=== PATIENT | male | born 1985 | race Caucasian/White ===

== ENCOUNTER 2021-01-15 09:42 | Emergency (ER) | payer SELFPAY ==
--- NOTE | 2021-01-15 11:17 | RAD REPORT ---
EXAM DESCRIPTION: US - Extremity Venous Uni Ltd - 01/15/2021 11:01 am CLINICAL HISTORY: PAIN COMPARISON: None. TECHNIQUE: Real-time sonographic evaluation of the right lower extremity deep venous systems was per formed. FINDINGS: Normal compressibility, flow augmentation, phasic flow and spontaneous flow are identified in the right lower extremity common femoral, superficial femoral, popliteal and posterior tibial vei ns. No intraluminal filling defects seen. A 4.5 x 2.7 x 1.5 centimeter popliteal fossa cyst present. No cyst rupture or hemorrhage findings. IMPRESSION: No DVT in the right lower extremity. A 4.5 centimeter right popliteal fossa cyst is present.
--- NOTE | 2021-01-15 12:44 | RAD REPORT ---
EXAM DESCRIPTION: RAD - Knee Right 3 View - 01/15/2021 12:26 pm CLINICAL HISTORY: PAIN COMPARISON: No comparisons FINDINGS: No acute fracture. No malalignment. Slight medial compartment narrowing. IMPRESSION: No acute osseous abnormality involving the right knee.
--- NOTE | 2021-01-15 13:23 | ER ---
Nurse's Notes [facility] Name: Jhon Keller Age: 35 yrs Sex: Male : 1985 Arrival Date: 01/15/2021 Time: 09:43 Bed 12 Private MD: Diagnosis: Synovial cyst of popliteal space [Turk], right knee;Right peripheral neuropathy Presentation: 01/15 10:04 Chief complaint: Patient states: Right knee pain x 3 weeks, right hand numbness, jl7 intermittent x 3 days. Coronavirus screen: At this time, the client does not indicate any symptoms associated with coronavirus-19. Ebola Screen: No symptoms or risks identified at this time. Initial Sepsis Screen: Does the patient meet any 2 criteria? No. Patient's initial sepsis screen is negative. Does the patient have a suspected source of infection? No. Patient's initial sepsis screen is negative. Risk Assessment: Do you want to hurt yourself or someone else? Patient reports no desire to harm self or others. Onset of symptoms is unknown. Care prior to arrival: None. 10:04 Method Of Arrival: Ambulatory 7 10:04 Acuity: GERMÁN 3 jl7 Triage Assessment: 10:06 General: Appears in no apparent distress. uncomfortable, Behavior is calm, cooperative, jl7 appropriate for age. Pain: Complains of pain in right knee Pain currently is 3 out of 10 on a pain scale. at worst was 10 out of 10 on a pain scale. Historical: - Allergies: 10:06 No Known Allergies; jl7 - Home Meds: 10:06 None [Active]; jl7 - PMHx: 10:06 None; jl7 - PSHx: 10:06 None; jl7 - Immunization history:: Adult Immunizations not up to date, Client reports having NOT received the Covid vaccine. - Social history:: Smoking status: Patient reports the use of cigarette tobacco products, smokes one pack cigarettes per day. Patient uses street drugs, marijuana. Screenin:51 Abuse screen: Denies threats or abuse. Nutritional screening: No deficits noted. ll3 Tuberculosis screening: No symptoms or risk factors identified. Fall Risk None identified. Assessment: 10:10 General: Appears in no apparent distress. uncomfortable, Behavior is calm, cooperative. ll3 Pain: Complains of pain in right knee Pain does not radiate. Pain currently is 3 out of 10 on a pain scale. Pain began 2-3 days ago. Is continuous, Alleviated by rest, Aggravated by increased activity, Current management is with Advil. 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 Cardiovascular: Patient's skin is warm and dry. Respiratory: No deficits noted. Airway is patent Respiratory effort is even, unlabored, Respiratory pattern is regular, symmetrical. Derm: Skin is pink, warm \T\ dry. Musculoskeletal: Range of motion: intact in all extremities, Reports numbness in right hand pain in right leg. 11:33 Reassessment: Patient appears in no apparent distress at this time. No changes from ll3 previously documented assessment. Patient and/or family updated on plan of care and expected duration. Pain level reassessed. Patient is alert, oriented x 3, equal unlabored respirations, skin warm/dry/pink. 12:51 Reassessment: Patient appears in no apparent distress at this time. No changes from ll3 previously documented assessment. Patient and/or family updated on plan of care and expected duration. Pain level reassessed. Patient is alert, oriented x 3, equal unlabored respirations, skin warm/dry/pink. Vital Signs: 10:04 BP 146 / 95; Pulse 82; Resp 17; Temp 97.1; Pulse Ox 94% ; Weight 163.29 kg; Height 5 jl7 ft. 8 in. (172.72 cm); Pain 3/10; 11:33 BP 134 / 88; Pulse 92; Resp 16; Pulse Ox 100% on R/A; ll3 12:51 BP 131 / 77; Pulse 74; Resp 16; Pulse Ox 96% on R/A; ll3 10:04 Body Mass Index 54.74 (163.29 kg, 172.72 cm) 7 ED Course: 09:43 Patient arrived in ED. as 10:06 Triage completed. jl7 10:06 Arm band placed on right wrist. jl7 10:09 Kenisha Decker, GLADYS is Primary Nurse. 3 10:11 Chencho Avina PA is PHCP. [facility] 10:11 Pierre Espinoza MD is Attending Physician. [facility] 10:51 Patient has correct armband on for positive identification. Bed in low position. Call ll3 light in reach. Side rails up X 1. 11:02 US Extremity Venous Unilateral Ltd In Process Unspecified. EDMS 12:00 Miquel wrap to right knee Velcro wrist splint applied to right wrist. ll3 12:27 Knee Right 3 View XRAY In Process Unspecified. EDMS 13:22 Bruno Hammond MD is Referral Physician. [facility] 13:38 No provider procedures requiring assistance completed. Patient did not have IV access ll3 during this emergency room visit. Administered Medications: No medications were administered Outcome: 13:22 Discharge ordered by MD. [facility] 13:38 Discharged to home ambulatory. ll3 13:38 Condition: stable 13:38 Discharge instructions given to patient, Instructed on discharge instructions, follow up and referral plans. Demonstrated understanding of instructions, follow-up care. 13:38 Patient left the ED. ll3 Signatures: Dispatcher [employer] EDMS Chencho Avina PA PA Leticia Mann Jahala, RN RN jl7 Kenisha Decker RN RN ll3 Corrections: (The following items were deleted from the chart) 11:35 10:48 General: Appears in no apparent distress. uncomfortable, Behavior is calm, ll3 cooperative, ll3 11:35 10:48 Pain: Complains of pain in right knee Pain does not radiate. Pain currently is 3 ll3 out of 10 on a pain scale. Pain began 2-3 days ago. Is continuous, Alleviated by rest, Aggravated by increased activity, Current management is with Advil, ll3 11:35 10:48 Neuro: Level of Consciousness is awake, alert, obeys commands, Oriented to ll3 person, place, time, situation, Payroll And Benefits Specialist are weak on right Gait is steady, Speech is normal, Facial symmetry appears normal, ll3 11:35 10:48 Cardiovascular: Patient's skin is warm and dry. ll3 ll3 11:35 10:48 Respiratory: No deficits noted. Airway is patent Respiratory effort is even, ll3 unlabored, Respiratory pattern is regular, symmetrical, ll3 11:35 10:48 Derm: Skin is pink, warm \T\ dry. ll3 ll3 11:35 10:48 Musculoskeletal: Range of motion: intact in all extremities, Reports numbness in ll3 right hand pain in right leg ll3 13:25 13:25 Miquel wrap to right knee Velcro wrist splint applied to right wrist. ll3 ll3
--- NOTE | 2021-01-15 13:23 | EDPHYS ---
Physician Documentation [facility] Name: Jhno Keller Age: 35 yrs Sex: Male : 1985 Arrival Date: 01/15/2021 Time: 09:43 Bed 12 Private MD: ED Physician Pierre Espinoza HPI: 01/15 13:18 This 35 yrs old Male presents to ER via Ambulatory with complaints of Numbness Of Hand, jmm Knee Pain. 13:18 The patient or guardian reports pain. Onset: The symptoms/episode began/occurred jmm gradually, 2 week(s) ago. 35-year-old male with no chronic medical conditions presents emerged part with complaints of right posterior knee pain patient states he is felt a pop as he is ambulated. Pain was initially anterior but is now migrated posteriorly. Patient also complains of pain from the mid right forearm down to the right hand. Pain is mainly in the median nerve distribution. Patient states he does work at [employer] and performs repetitive activities.. Historical: - Allergies: 10:06 No Known Allergies; jl7 - Home Meds: 10:06 None [Active]; jl7 - PMHx: 10:06 None; jl7 - PSHx: 10:06 None; jl7 - Immunization history:: Adult Immunizations not up to date, Client reports having NOT received the Covid vaccine. - Social history:: Smoking status: Patient reports the use of cigarette tobacco products, smokes one pack cigarettes per day. Patient uses street drugs, marijuana. ROS: 13:18 Constitutional: Negative for fever, chills, and weight loss, Cardiovascular: Negative jmm for chest pain, palpitations, and edema, Respiratory: Negative for shortness of breath, cough, wheezing, and pleuritic chest pain. 13:18 MS/extremity: Positive for pain. 13:18 All other systems are negative. Exam: 13:18 Constitutional: This is a well developed, well nourished patient who is awake, alert, jmm and in no acute distress. Head/Face: atraumatic. Eyes: EOMI, no conjunctival erythema appreciated ENT: Moist Mucus Membranes Neck: Trachea midline, Supple Chest/axilla: Normal chest wall appearance and motion. Cardiovascular: Regular rate and rhythm. No edema appreciated Respiratory: Normal respirations, no respiratory distress appreciated Abdomen/GI: Non distended, soft Back: Normal ROM Skin: General appearance color normal 13:18 Musculoskeletal/extremity: FullRight mid forearm mildly tender to palpation, no swelling appreciated, full radial pulse, civil service worker strength appreciated, patient mainly localizes the pain to the median nerve distribution of the hand. Neurovascular tact, compartments are soft. 13:18 Skin: Appearance: Color: normal in color. 13:18 Neuro: Orientation: is normal, Mentation: is normal, Memory: is normal. 13:18 Psych: Behavior/mood is pleasant, cooperative. Vital Signs: 10:04 BP 146 / 95; Pulse 82; Resp 17; Temp 97.1; Pulse Ox 94% ; Weight 163.29 kg; Height 5 jl7 ft. 8 in. (172.72 cm); Pain 3/10; 11:33 BP 134 / 88; Pulse 92; Resp 16; Pulse Ox 100% on R/A; ll3 12:51 BP 131 / 77; Pulse 74; Resp 16; Pulse Ox 96% on R/A; ll3 10:04 Body Mass Index 54.74 (163.29 kg, 172.72 cm) jl7 MDM: 10:32 Patient medically screened. [facility] 13:21 Data reviewed: vital signs, nurses notes. Counseling: I had a detailed discussion with [facility] the patient and/or guardian regarding: the historical points, exam findings, and any diagnostic results supporting the discharge/admit diagnosis, radiology results, the need for outpatient follow up, to return to the emergency department if symptoms worsen or persist or if there are any questions or concerns that arise at home. 01/15 10:33 Order name: US Extremity Venous Unilateral Ltd; Complete Time: 11:28 [facility] 01/15 10:33 Order name: Knee Right 3 View XRAY; Complete Time: 12:52 [facility] 01/15 11:44 Order name: Wrist Splint: velcro; Complete Time: 12:00 [facility] 01/15 11:44 Order name: Miquel wrap-joint: Right Knee Pain; Complete Time: 12:00 [facility] Administered Medications: No medications were administered Disposition: 15:02 Co-signature as Attending Physician, Pierre Espinoza MD I agree with the assessment and kdr plan of care. Disposition Summary: 01/15/21 13:22 Discharge Ordered Location: Home [facility] Condition: Stable jmm Diagnosis - Synovial cyst of popliteal space [Turk], right knee jmm - Right peripheral neuropathy jmm Followup: [facility] - With: Bruno Hammond MD - When: 1 - 2 days - Reason: Recheck today's complaints, Continuance of care, Re-evaluation by your physician Discharge Instructions: - Discharge Summary Sheet jmm - Turk Cyst jmm - Carpal Tunnel Syndrome jmm Forms: - Medication Reconciliation Form jmm - Thank You Letter jmm - Antibiotic Education jmm - Prescription Opioid Use jmm Signatures: Dispatcher [employer] EDMS Pierre Espinoza MD MD kdr Mickail, Joel, PA PA jom Brittany Rae RN RN jl7
[2021-01-15 13:55] VITALS: TEMP 97.1
[2021-01-15 13:58] VITALS: BP 131/77; O2SAT 96
== END 2021-01-15 13:38 | disposition home or self-care (01) ==
LOC: ER 09:42
DX: M71.21 Synovial cyst of popliteal space [Baker], right knee (principal); G62.9 Polyneuropathy, unspecified; F17.210 Nicotine dependence, cigarettes, uncomplicated
CPT/HCPCS: 93971; 99283

== ENCOUNTER 2021-12-25 10:50 | Emergency (ER) | payer SELFPAY ==
--- OUTSIDE RECORDS SUMMARY | 2021-12-25 10:52 | XMS REPORT | Continuity of Care Document ---
:1985 Author Organization [facility] t Address [address] [place] [address] Care Team Providers Name Role Phone PCP, PATIENT DOES NOT HAVE A Primary Care Physician Unavaila ble SANGEETA BUTLER Attending Clinician Unavailable Sangeeta Tolliver Attending Clinician SANGEETA BUTLER Admitting Clinician Unavailable Problems This patient has no known problems. Allergies, Adverse Reactions, Alerts Allergy Allergy Status Severity Reaction(s) Onset Inactive Treating Comm ents Source Name Type Date Date Clinician NO KNOWN Drug Active [facility]GIE [facility] Social History Social Habit Start Date Stop Date Quantity Comments Source Exposure to Not sure [facility] SARS-CoV-2 (event) [facility] Sex Assigned At [birth year] [facility] 00:00:00 00:00:00 [facility] Smoking Status Start Date Stop Date Source Unknown if ever smoked [facility] Medications Ordered Filled Start Stop Current Ordering Indication Dosage Frequency Signature Comments Components Source Medication Medication Date Date Medication? Clinician (SIG) Name Name traMADoL 50 2021-0 Yes 4647 50mg Take 1 Univ ers mg tablet 2-09 tablet by ity o f 00:00: mouth [place] 00 every 6 Medical (six) Branch hours as needed for Pain (scale 7-10). Indication s: acute pain Vital Signs Vital Name Observation Time Observation Value Comments Source Systolic blood 2021-03-25 18:17:00 157 mm[Hg] [facility] Diastolic blood 2021-03-25 18:17:00 78 mm[Hg] [facility] Heart rate 2021-03-25 18:17:00 79 /min [facility]i [facility] Body temperature 2021-03-25 18:17:00 37.06 Marcela [facility] Respiratory rate 2021-03-25 18:17:00 16 /min [facility] Body weight 2021-03-25 18:17:00 163.295 kg [facility] Oxygen saturation in 2021-03-25 18:17:00 94 /min [facility] Arterial blood by [facility] Pulse oximetry Branch Procedures Procedure Date / Time Performed Performing Clinician Sourjoseph e XR KNEE 3 VW LEFT 2021-03-25 20:20:03 Sangeeta Butler [facility] NOTICE OF PRIVACY 2021-03-25 18:10:09 Doctor Unassigned, No [facility] PRACTICES Name Medical Branch Encounters Start End Encounter Admission Attending Care Care Encounter Source Date/Time Date/Time Type Type Clinicians Facility Department ID 2021-03-25 2021-03-25 Emergency X REBECCA BUTLER ERT [id number] [facility] 12:19:00 15:48:[address] [facility] 2021-03-25 2021-03-25 Emergency REBECCA Butler [id number] Univers 12:19:00 15:48:00 Sangeeta MURRELL [id number] i [facility] [id number] [facility] [id number] [facility] 084 Branch Results This patient has no known results.
[2021-12-25 12:06] LABS: Absolute Lymphocytes (CBC) 1.1 K/uL (0.7-4.9); Hematocrit 47.1 % (39.6-49.0); Lymphocytes % 18.3 % (15.3-44.8); MCV 94.2 fL (80-100); MPV 7.2 fL (7.6-11.3)
[2021-12-25 12:44] LABS: Potassium 4.3 mmol/L (3.5-5.1)
--- NOTE | 2021-12-25 12:46 | EDPHYS ---
Physician Documentation [facility] Name: Jhon Keller Age: 36 yrs Sex: Male : 1985 Arrival Date: 12/25/2021 Time: 10:56 Bed 20 Private MD: ED Physician Pierre Espinoza HPI: 12/25 12:03 This 36 yrs old Male presents to ER via Ambulatory with complaints of Leg jl9 Pain - bilateral. Patient reports pain x1 year. Seen by numerous physicicans and told he needs to lose weight per patient.. 12:03 The patient presents with pain. The patient presents with pain, that is chronic. The jl9 complaints affect the. Context: the patient is able to ambulate. Onset: The symptoms/episode began/occurred 1 year(s) ago. Modifying factors: the symptoms are aggravated by Walking over 8 hours. Associated signs and symptoms: The patient has no apparent associated signs or symptoms. The patient has experienced similar episodes in the past. Historical: - Allergies: 11:19 No Known Allergies; ss - Home Meds: 11:19 None [Active]; ss - PMHx: 11:19 None; ss - PSHx: 11:19 None; ss - Immunization history:: Client reports having NOT received the Covid vaccine. - Social history:: Smoking status: Patient reports the use of cigarette tobacco products, smokes one pack cigarettes per day. ROS: 12:04 Constitutional: Negative for fever, chills, and weight loss, Eyes: Negative for injury, jl9 pain, redness, and discharge, ENT: Negative for injury, pain, and discharge, Neck: Negative for injury, pain, and swelling, Cardiovascular: Negative for chest pain, palpitations, and edema, Respiratory: Negative for shortness of breath, cough, wheezing, and pleuritic chest pain, Abdomen/GI: Negative for abdominal pain, nausea, vomiting, diarrhea, and constipation, Back: Negative for injury and pain, : Negative for injury, bleeding, discharge, and swelling. 12:04 Skin: Negative for injury, rash, and discoloration, Neuro: Negative for headache, weakness, numbness, tingling, and seizure, Psych: Negative for depression, anxiety, suicide ideation, homicidal ideation, and hallucinations, Allergy/Immunology: Negative for hives, rash, and allergies, Endocrine: Negative for neck swelling, polydipsia, polyuria, polyphagia, and marked weight changes, Hematologic/Lymphatic: Negative for swollen nodes, abnormal bleeding, and unusual bruising. 12:04 MS/extremity: Positive for Bilateral leg pain. Exam: 12:05 Constitutional: This is a well developed, well nourished patient who is awake, alert, jl9 and in no acute distress. Head/Face: Normocephalic, atraumatic. Eyes: Pupils equal round and reactive to light, extra-ocular motions intact. Lids and lashes normal. Conjunctiva and sclera are non-icteric and not injected. Cornea within normal limits. Periorbital areas with no swelling, redness, or edema. ENT: Mucous membranes moist. Neck: Trachea midline, no thyromegaly or masses palpated, and no cervical lymphadenopathy. Supple, full range of motion without nuchal rigidity, or vertebral point tenderness. No Meningismus. Chest/axilla: Normal chest wall appearance and motion. Nontender with no deformity. No lesions are appreciated. Cardiovascular: Regular rate and rhythm with a normal S1 and S2. No gallops, murmurs, or rubs. Normal PMI, no JVD. No pulse deficits. Respiratory: Lungs have equal breath sounds bilaterally, clear to auscultation and percussion. No rales, rhonchi or wheezes noted. No increased work of breathing, no retractions or nasal flaring. Abdomen/GI: Soft, non-tender, with normal bowel sounds. No distension or tympany. No guarding or rebound. No evidence of tenderness throughout. Back: No spinal tenderness. No costovertebral tenderness. Full range of motion. Skin: Warm, dry with normal turgor. Normal color with no rashes, no lesions, and no evidence of cellulitis. MS/ Extremity: Pulses equal, no cyanosis. Neurovascular intact. Full, normal range of motion. Neuro: Awake and alert, GCS 15, oriented to person, place, time, and situation. Cranial nerves II-XII grossly intact. Motor strength 5/5 in all extremities. Sensory grossly intact. Cerebellar exam normal. Normal gait. Psych: Awake, alert, with orientation to person, place and time. Behavior, mood, and affect are within normal limits. Vital Signs: 11:15 BP 136 / 63; Pulse 73; Resp 20; Temp 97.6(TE); Pulse Ox 91% on R/A; Weight 158.76 kg; ss Height 5 ft. 4 in. (162.56 cm); Pain 4/10; 11:15 Body Mass Index 60.08 (158.76 kg, 162.56 cm) ss MDM: 12:05 Data reviewed: vital signs, nurses notes. Counseling: I had a detailed discussion with jlTolu the patient and/or guardian regarding: the historical points, exam findings, and any diagnostic results supporting the discharge/admit diagnosis, lab results, the need for outpatient follow up, to return to the emergency department if symptoms worsen or persist or if there are any questions or concerns that arise at home. 12:20 Patient medically screened. [facility] 12/25 11:29 Order name: CBC with Diff; Complete Time: 12:33 9 12/25 11:29 Order name: BMP; Complete Time: 12:46 [facility] 12/25 11:29 Order name: Urine Dipstick-Ancillary (obtain specimen); Complete Time: 13:03 [facility] 12/25 12:54 Order name: Urine Dipstick-Ancillary; Complete Time: 12:55 EDMS Administered Medications: No medications were administered Disposition Summary: 12/25/21 12:46 Discharge Ordered Location: Home jl9 Condition: Stable jl9 Diagnosis - Pain in unspecified lower leg jl9 Followup: jl9 - With: Private Physician - When: 1 - 2 days - Reason: Recheck today's complaints, Continuance of care, Re-evaluation by your physician Discharge Instructions: - Discharge Summary Sheet jl9 - Pain Without a Known Cause jl9 - How to Use Cold Therapy, [id number] jl9 Forms: - Medication Reconciliation Form jl9 - Thank You Letter jl9 - Antibiotic Education jl9 - Prescription Opioid Use jl9 Prescriptions: - Ibuprofen 800 mg Oral Tablet - take 1 tablet by ORAL route every 12 hours As needed take with food; 20 tablet; jl9 Refills: 0, Product Selection Permitted Signatures: Dispatcher [employer] EDMS Robyn Arredondo RN RN Pradeep Victoria jl9
--- NOTE | 2021-12-25 12:46 | ER ---
Nurse's Notes [facility] Name: Jhon Keller Age: 36 yrs Sex: Male : 1985 Arrival Date: 12/25/2021 Time: 10:56 Bed 20 Private MD: Diagnosis: Pain in unspecified lower leg Presentation: 12/25 11:15 Chief complaint: Patient states: Bilateral leg/ foot pain that began 1 year ago. ss Coronavirus screen: Client denies travel out of the [place] in the last 14 days. Ebola Screen: Patient denies exposure to infectious person. Patient denies travel to an Ebola-affected area in the 21 days before illness onset. Initial Sepsis Screen: Does the patient meet any 2 criteria? No. Patient's initial sepsis screen is negative. Does the patient have a suspected source of infection? No. Patient's initial sepsis screen is negative. Risk Assessment: Do you want to hurt yourself or someone else? Patient reports no desire to harm self or others. Onset of symptoms was December 2020. 11:15 Method Of Arrival: Ambulatory ss 11:15 Acuity: GERMÁN 3 ss Historical: - Allergies: 11:19 No Known Allergies; ss - Home Meds: 11:19 None [Active]; ss - PMHx: 11:19 None; ss - PSHx: 11:19 None; ss - Immunization history:: Client reports having NOT received the Covid vaccine. - Social history:: Smoking status: Patient reports the use of cigarette tobacco products, smokes one pack cigarettes per day. Screenin:04 Abuse screen: Denies threats or abuse. Denies injuries from another. Nutritional db screening: No deficits noted. Tuberculosis screening: No symptoms or risk factors identified. Fall Risk None identified. No fall in past 12 months (0 pts). No secondary diagnosis (0 pts). IV access (20 points). Ambulatory Aid- None/Bed Rest/Nurse Assist (0 pts). Gait- Normal/Bed Rest/Wheelchair (0 pts) Mental Status- Oriented to own ability (0 pts). Total Anthony Fall Scale indicates No Risk (0-24 pts). Assessment: 13:03 Reassessment: Patient appears in no apparent distress at this time. Patient is alert, db oriented x 3, equal unlabored respirations, skin warm/dry/pink. left leg pain that has been going on for 1 year. General: Appears in no apparent distress. comfortable, Behavior is calm, cooperative, appropriate for age, quiet. Pain: Complains of pain in left leg. Neuro: No deficits noted. Level of Consciousness is awake, alert, obeys commands, Oriented to person, place, time, situation, Appropriate for age. Cardiovascular: No deficits noted. Reports None. Respiratory: No deficits noted. GI: No deficits noted. No signs and/or symptoms were reported involving the gastrointestinal system. : No deficits noted. No signs and/or symptoms were reported regarding the genitourinary system. EENT: No deficits noted. No signs and/or symptoms were reported regarding the EENT system. Vital Signs: 11:15 BP 136 / 63; Pulse 73; Resp 20; Temp 97.6(TE); Pulse Ox 91% on R/A; Weight 158.76 kg; ss Height 5 ft. 4 in. (162.56 cm); Pain 4/10; 11:15 Body Mass Index 60.08 (158.76 kg, 162.56 cm) ED Course: 10:56 Patient arrived in ED. am2 11:18 Pradeep Renee is PHCP. jl9 11:18 Pierre Espinoza MD is Attending Physician. jl9 11:19 Triage completed. 11:19 Arm band placed on right wrist. ss 11:57 Inserted saline lock: 20 gauge in right antecubital area, using aseptic technique. zm Blood collected. 11:57 BMP Sent. 11:57 CBC with Diff Sent. 12:47 Mitzi Kwon, RN is Primary Nurse. db 13:04 Patient has correct armband on for positive identification. Bed in low position. Call db light in reach. Side rails up X 1. 13:04 No provider procedures requiring assistance completed. IV discontinued, intact, db bleeding controlled, No redness/swelling at site. Administered Medications: No medications were administered Medication: 13:04 VIS not applicable for this client. db Outcome: 12:46 Discharge ordered by . jl9 13:04 Discharged to home ambulatory. db 13:04 Condition: stable 13:04 Discharge instructions given to patient, Instructed on discharge instructions, follow up and referral plans. Prescriptions given X 1. 13:05 Patient left the ED. db Signatures: Robyn Arredondo RN RN ss Flaquita Grace am2 Mitzi Galicia John 9 Mitzi Kwon RN RN db Corrections: (The following items were deleted from the chart) 11:27 11:15 Acuity: GERMÁN [address] [facility]
[2021-12-25 12:54] LABS: Urine Blood Negative (Negative); Urine Glucose Negative (Negative); Urine Protein Negative (Negative); Urine Specific Gravity >=1.030 (1.005-1.030)
[2021-12-25 14:08] VITALS: BP 136/63; TEMP 97.6; O2SAT 91
== END 2021-12-25 13:05 | disposition home or self-care (01) ==
LOC: ER 10:50
DX: M79.605 Pain in left leg (principal); M79.604 Pain in right leg
CPT/HCPCS: 36415; 80048; 81003; 85025; 99283

== ENCOUNTER 2022-03-09 18:09 | Inpatient (IN) | payer SELFPAY ==
--- OUTSIDE RECORDS SUMMARY | 2022-03-09 18:12 | XMS REPORT | Continuity of Care Document ---
:1985 Author Organization [facility] t Address [address] [place] [address] Care Team Providers Name Role Phone Pcp, Patient Does Not Have A Primary Care Physician +[phone] PHILIPPE RUST Attending Clinician Unavailable Philippe Rust NP Attending Clinician SANGEETA BUTLER Attending Clinician Unavailable Sangeeta Tolliver Attending Clinician SANGEETA BUTLER Admitting Clinician Unavailable Problems Condition Condition Condition Status Onset Resolution Last Treating Co mments Source Name Details Category Date Date Treatment Clinician Date No known No known Disease Unive rs active active ity of problems problems [facility] Allergies, Adverse Reactions, Alerts Allergy Allergy Status Severity Reaction(s) Onset Inactive Treating Comm ents Source Name Type Date Date Clinician NO KNOWN Drug Active Univers ALLERGIE Class ity of S [facility] Social History Social Habit Start Date Stop Date Quantity Comments Source Exposure to 2021-12-16 2021-12-26 Not sure [facility] SARS-CoV-2 (event) 00:00:00 13:13:00 Medica l Branch Sex Assigned At [birth year] [facility] 00:00:00 00:00:00 Medical Branch Smoking Status Start Date Stop Date Source Tobacco smoking consumption [facility] Medical unknown Branch Medications Ordered Filled Start Stop Current Ordering Indication Dosage Frequency Signature Comments Components Source Medication Medication Date Date Medication? Clinician (SIG) Name Name traMADoL 50 0 Yes 4647 50mg Take 1 Univ ers mg tablet 2-09 tablet by ity o f 00:00: mouth [place] 00 every 6 Medical (six) Branch hours as needed for Pain (scale 7-10). Indication s: acute pain traMADoL 50 2021- Yes 4647 50mg Take 1 Univ ers mg tablet 2-09 tablet by ity o f 00:00: mouth [place] 00 every 6 Medical (six) Branch hours as needed for Pain (scale 7-10). Indication s: acute pain Vital Signs Vital Name Observation Time Observation Value Comments Source Systolic blood 2021-12-26 19:10:00 162 mm[Hg] Univer sity of [facility] Diastolic blood 2021-12-26 19:10:00 79 mm[facility]Hg[facility] 2021-12-26 19:10:00 77 [facility] 2021-12-26 19:10:00 37.06 [facility] Respiratory rate 2021-12-26 19:10:00 16 /min [facility] Body height 2021-12-26 19:10:00 165.1 cm Universi [facility] Body weight 2021-12-26 19:10:00 158.759 kg General acute hospital BMI 2021-12-26 19:10:00 58.24 kg/m2 General acute hospital Oxygen saturation in 2021-12-26 19:10:00 90 /min University of Arterial blood by [facility] Pulse oximetry Branch Systolic blood 2021-03-25 18:17:00 157 mm[Hg] Univer sity [facility] Diastolic blood 2021-03-25 18:17:00 78 mm[Hg] Unive rsity [facility] Heart rate 2021-03-25 18:17:00 79 /min Universi ty [facility] Body temperature 2021-03-25 18:17:00 37.06 Marcela [facility] rate 2021-03-25 18:17:00 16 /min [facility] Body weight 2021-03-25 18:17:00 163.295 kg Universi ty [facility] Oxygen saturation in 2021-03-25 18:17:00 94 /min University of Arterial blood by [facility] Pulse oximetry Branch Procedures Procedure Date / Time Performed Performing Clinician Keiko lott ASSIGNMENT OF BENEFITS 2021-12-26 19:28:16 Doctor Unassigned, No [facility] Medical Branch CONSENT/REFUSAL FOR 2021-12-26 19:01:22 Doctor Unassigned, No [facility] DIAGNOSIS AND Name Medical Branch TREATMENT XR KNEE 3 VW LEFT 2021-03-25 20:20:03 Sangeeta Butler [facility] NOTICE OF PRIVACY 2021-03-25 18:10:09 Doctor Unassigned, No [facility] Name Medical Branch Encounters Start End Encounter Admission Attending Care Care Encounter Source Date/Time Date/Time Type Type Clinicians Facility Department ID 2021-12-26 2021-12-26 [facility] [id number] Univers 13:13:00 13:50:00 PHILIPPE nair [facility] 2021-12-26 2021-12-26 [facility] [id number] Univers 13:13:00 13:50:00 Philippe MURRELL [id number] ity [facility] [id number] [facility] [id number] [place] [id number] Branch 2021-03-25 2021-03-25 Emergency X [facility] ERT [id number] Univers 12:19:00 15:48:00 SANGEETA nair [facility] 2021-03-25 2021-03-25 Emergency Luke [facility] [id number] Univers 12:19:00 15:48:00 Sangeeta MURRELL [id number] i ty [facility] [id number] [facility] [id number] [place] [address] Branch Results This patient has no known results.
[2022-03-09] MEDS ORDERED: IPRATROPIUM BROM 0.5MG/2.5ML ONE (19:18)
[2022-03-09] MEDS ORDERED: ALBUTEROL 2.5 MG/3 ML NEB SOL ONE (19:18)
[2022-03-09 19:29] LABS: Blood Gas Oxyhemoglobin 95.5 % (94-97); Blood O2 Saturation 98.4 % (92-98.5)
[2022-03-09 19:30] LABS: Arterial Blood Carboxyhemoglob 1.3 % (0-1.5)
[2022-03-09 19:39] LABS: Protime INR 1.15
[2022-03-09 19:55] LABS: ALT/SGPT 38 U/L (16-61); AST/SGOT 57 U/L (15-37); Albumin 3.2 g/dL (3.4-5.0); Alkaline Phosphatase 51 U/L (45-117); BUN Blood Urea Nitrogen 23 mg/dL (7-18); Bicarbonate 33 mmol/L (21-32); Bilirubin Direct < 0.1 mg/dL (0-0.2); Bilirubin Total 0.4 mg/dL (0.2-1.0); Glomerular Filtration Rate 108 ml/min (=/>90); Glucose Level 140 mg/dL (74-106); NT PRO-BNP 1710 pg/mL (<125); Potassium 5.3 mmol/L (3.5-5.1); Protein, Total 7.9 g/dL (6.4-8.2); Sodium Level 133 mmol/L (136-145); Troponin High Sensitivity 267.5 pg/mL (<58.9)
[2022-03-09 20:00] LABS: Absolute Lymphocytes (CBC) 0.7 K/uL (0.7-4.9); Hematocrit 50.6 % (39.6-49.0); Lymphocytes % 8.2 % (15.3-44.8); MCV 92.7 fL (80-100); MPV 8.3 fL (7.6-11.3); RBC Red Blood Cell Count 5.46 M/uL (4.33-5.43)
[2022-03-09 20:01] LABS: Blood Morphology Comment NOT SEEN (NOT SEEN); Platelet Estimate ADEQ; White Blood Cell Scan OK (OK)
[2022-03-09 20:02] LABS: Magnesium 2.3 mg/dL (1.6-2.4)
[2022-03-09 20:08] LABS: SARS-COV-2 RT PCR NEGATIVE (NEGATIVE)
--- NOTE | 2022-03-09 20:12 | RAD REPORT ---
EXAM DESCRIPTION: Stormy Single View03/09/2022 8:02 pm CLINICAL HISTORY: Chest pain COMPARISON: none FINDINGS: The lungs appear clear of acute infiltrate. The heart is normal size IMPRESSION: No acute abnormalities displayed
--- NOTE | 2022-03-09 20:27 | EDPHYS ---
Physician Documentation [facility] Name: Jhon Keller Age: 36 yrs Sex: Male : 1985 Arrival Date: 03/09/2022 Time: 18:13 Bed 18 Private MD: ED Physician Samson Stark HPI: 03/09 19:14 This 36 yrs old Male presents to ER via Ambulatory with complaints of weakness, sob. rn 19:15 The patient has shortness of breath at rest, with light activity. Onset: The rn symptoms/episode began/occurred 2 month(s) ago. Duration: The symptoms are continuous, and are steadily getting worse. The patient's shortness of breath is aggravated by coughing, light activity, supine position, talking, walking. Associated signs and symptoms: Pertinent positives: non-productive cough, fever, Pertinent negatives: chest pain, dizziness, hemoptysis, vomiting. Severity of symptoms: At their worst the symptoms were moderate in the emergency department the symptoms are unchanged. The patient has not experienced similar symptoms in the past. The patient has not recently seen a physician. Pt reports generalized weakness, cough, chills, vomiting for 2-3 days, but has been having exertional dyspnea over last 2 months. + smoker. No chest pain. No abd pain. No hx of heart or lung problems.. Historical: - Allergies: 18:59 No Known Allergies; jl7 - Home Meds: 18:59 None [Active]; jl7 - PMHx: 18:59 None; jl7 - PSHx: 18:59 None; jl7 - Immunization history:: Client reports having NOT received the Covid vaccine. Flu vaccine is not up to date. - Family history:: not pertinent. - Social history:: Smoking status: Patient reports the use of cigarette tobacco products, smokes two packs cigarettes per day. - Hospitalizations: : No recent hospitalization is reported. ROS: 19:15 Constitutional: Negative for fever, chills, and weight loss, Eyes: Negative for injury, rn pain, redness, and discharge, Neck: Negative for injury, pain, and swelling, Cardiovascular: Negative for chest pain, palpitations, and edema, Respiratory: + cough and sob Abdomen/GI: Negative for abdominal pain, diarrhea, and constipation, Back: Negative for injury and pain, MS/Extremity: Negative for injury and deformity, Skin: Negative for injury, rash, and discoloration, Neuro: Negative for headache, numbness, tingling, and seizure. Exam: 19:15 Constitutional: Morbidly obese male, on non-rebreather when I walked in, mild rn tachypnea Head/Face: Normocephalic, atraumatic. ENT: no stridor Cardiovascular: Regular rate and rhythm. No pulse deficits. Respiratory: + mild tachypnea, diminished breath sounds bilaterally with poor inspiratory air movement Abdomen/GI: soft, non-tender Skin: Warm, dry MS/ Extremity: Pulses equal, no cyanosis. Neurovascular intact. Full, normal range of motion. Equal circumference. 1+ non-pitting edema bilateral lower ext Neuro: Awake and alert, GCS 15, oriented to person, place, time, and situation. Cranial nerves II-XII grossly intact. Motor strength 5/5 in all extremities. Sensory grossly intact. Cerebellar exam normal. Normal gait. 19:38 ECG was reviewed by the Attending Physician. rn Vital Signs: 18:57 BP 152 / 69; Pulse 97; Resp 20; Temp 99.0(O); Pulse Ox 54% on R/A; Height 5 ft. 4 in. jl7 (162.56 cm); 18:58 BP 128 / 76; Pulse 92; as6 19:38 BP 102 / 63; Pulse 97; Resp 23; Pulse Ox 100% on 100% BiPAP; Weight 163.29 kg (R); as6 Height 5 ft. 5 in. (165.10 cm) (R); 20:45 BP 118 / 66; Pulse 90; Resp 20 S; Pulse Ox 99% on 55% BiPAP; as6 21:45 BP 121 / 69; Pulse 87; Resp 19 S; Pulse Ox 99% on 55% BiPAP; as6 22:32 BP 115 / 63; Pulse 84; Resp 22 S; Pulse Ox 96% on 55% BiPAP; as6 19:38 Body Mass Index 59.91 (163.29 kg, 165.10 cm) as6 MDM: 19:03 Patient medically screened. rn 20:24 Differential diagnosis: Bronchitis Chronic Obstructive Pulmonary Disease Myocardial rn Infarction pneumonia, Pneumothorax pulmonary edema, Pulmonary Embolism reactive airway disease. Data reviewed: vital signs, nurses notes, lab test result(s), EKG, radiologic studies, CT scan, and as a result, I will admit patient. Independent interpretation of the following test(s) in the Emergency Department EKG: See my EKG interpretation above X-Ray: My interpretation is CXR neg for pneumothorax or pneumonia. Counseling: I had a detailed discussion with the patient and/or guardian regarding: the historical points, exam findings, and any diagnostic results supporting the discharge/admit diagnosis, lab results, radiology results, the need for further work-up and treatment in the hospital. Response to treatment: the patient's symptoms have mildly improved after treatment. 03/09 19:05 Order name: Basic Metabolic Panel; Complete Time: 20:22 cp 03/09 19:05 Order name: CBC with Diff; Complete Time: 20:22 cp 03/09 19:05 Order name: D-Dimer; Complete Time: 19:56 cp 03/09 19:05 Order name: LFT's; Complete Time: 20:22 cp 03/09 19:05 Order name: Magnesium; Complete Time: 20:22 cp 03/09 19:05 Order name: NT PRO-BNP; Complete Time: 20:22 cp 03/09 19:05 Order name: PT-INR; Complete Time: 19:56 cp 03/09 19:05 Order name: Troponin HS; Complete Time: 20:22 cp 03/09 19:05 Order name: COVID-19/FLU A+B; Complete Time: 20:22 cp 03/09 19:05 Order name: Lactate w/ 2H reflex if indic.; Complete Time: 19:56 cp 03/09 19:05 Order name: Blood Culture Adult (2) cp 03/09 19:13 Order name: ABG; Complete Time: 19:56 rn 03/09 20:01 Order name: CBC Smear Scan; Complete Time: 20:22 EDMS 03/09 19:05 Order name: XRAY Chest (1 view); Complete Time: 20:22 cp 03/09 21:08 Order name: CT Chest For PE Angio rn 03/09 21:51 Order name: CT; Complete Time: 21:53 EDMS 03/10 01:32 Order name: Creatine Phosphokinase; Complete Time: 02:29 EDMS 03/10 01:32 Order name: Troponin High Sensitivity; Complete Time: 02:29 EDMS 03/10 04:52 Order name: CBC with Automated Diff; Complete Time: 05:11 EDMS 03/10 05:46 Order name: Basic Metabolic Panel EDNM 03/10 05:46 Order name: Phosphorus EDNM 03/10 05:46 Order name: Troponin High Sensitivity EDNM 03/10 05:46 Order name: Lipid Profile EDNM 03/10 05:46 Order name: Magnesium EDNM 03/10 05:46 Order name: Thyroid Stimulating Hormone EDNM 03/10 05:51 Order name: Hemoglobin A1c EDNM 03/09 19:05 Order name: EKG; Complete Time: 19:06 cp 03/09 19:05 Order name: Cardiac monitoring; Complete Time: 19:19 cp 03/09 19:05 Order name: EKG - Nurse/Tech; Complete Time: 19:37 cp 03/09 19:05 Order name: IV Saline Lock; Complete Time: 19:19 cp 03/09 19:05 Order name: Labs collected and sent; Complete Time: 19:28 cp 03/09 19:05 Order name: O2 Per Protocol; Complete Time: 19:19 cp 03/09 19:05 Order name: O2 Sat Monitoring; Complete Time: 19:19 cp EC:38 Rate is 91 beats/min. Rhythm is regular. QRS [place] is Normal. [place] interval is normal. QRS rn interval is normal. QT interval is normal. No Q waves. T waves are Normal. No ST changes noted. Clinical impression: Normal ECG. Interpreted by me. Reviewed by me. Administered Medications: 19:25 Drug: Albuterol - atroVENT (ipratropium) (3:1) (2.5 mg - 0.5 mg) 3 ml Route: Nebulizer; as6 23:30 Follow up: Response: No adverse reaction as6 22:12 Drug: Tamiflu (oseltamivir) 75 mg Route: PO; as6 23:30 Follow up: Response: No adverse reaction as6 22:12 Drug: Aspirin 325 mg Route: PO; as6 23:30 Follow up: Response: No adverse reaction as6 Disposition: 20:26 Critical Care:. rn Disposition Summary: 03/09/22 20:26 Hospitalization Ordered Hospitalization Status: Inpatient Admission rn Provider: Lobo Ribeiro rn Condition: Stable rn Problem: new rn Symptoms: have improved rn Bed/Room Type: Standard rn Location: Telemetry/MedSurg (Inpatient)(03/10/22 14:26) Room Assignment: 425(03/10/22 14:26) dw Diagnosis - Influenza due to identified novel influenza A virus rn - Hypoxemia rn - Subsequent non-ST elevation (NSTEMI) myocardial infarction rn Forms: - Medication Reconciliation Form rn - SBAR form cadmium burner time excluding procedures: 20:26 Critical care time: Bedside Care: 35 minutes. Total time: 35 minutes rn Signatures: Dispatcher [employer] EDMS Benita Martinez, RN RN Sandy Rogers, RN RN Samson Leigh MD MD rn Page, Corey, PA PA cp Leal, Jahala, RN RN jl7 Dwight Brooks, RN RN as6 Rona Riddle, PA-C PA-C sb4 Corrections: (The following items were deleted from the chart) 19:44 19:06 Arterial Blood Gas+RC.LAB.BRZ ordered. EDMS EDNM 23:12 20:26 Telemetry/MedSurg (Inpatient) rn 23:12 20:26 rn 03/10 14:26 03/09 23:[address] [facility] ER HOLD [facility] 03/10 14:26 03/09 23:12 ERHOLD- bb 03/10 14:26 14:26 Telemetry/MedSurg (observation) [facility] 14: 14:26 [facility]
--- NOTE | 2022-03-09 20:27 | ER ---
Nurse's Notes [facility] Name: Jhon Keller Age: 36 yrs Sex: Male : 1985 Arrival Date: 03/09/2022 Time: 18:13 Bed 18 Private MD: Diagnosis: Influenza due to identified novel influenza A virus;Hypoxemia;Subsequent non-ST elevation (NSTEMI) myocardial infarction Presentation: 03/09 18:57 Chief complaint: Patient states: Feeling very tired since yesterday. Also c/o mild jl7 cough. Coronavirus screen: Client presents with at least one sign or symptom that may indicate coronavirus-19. Ebola Screen: Patient denies exposure to infectious person. Patient denies travel to an Ebola-affected area in the 21 days before illness onset. Initial Sepsis Screen: Does the patient meet any 2 criteria? RR > 20 per min. HR > 90 bpm. Does the patient have a suspected source of infection? No. Patient's initial sepsis screen is negative. Risk Assessment: Do you want to hurt yourself or someone else? Patient reports no desire to harm self or others. Onset of symptoms was March 08, 2022. 18:57 Acuity: GERMÁN 1 jl7 18:57 Method Of Arrival: Ambulatory jl7 Historical: - Allergies: 18:59 No Known Allergies; jl7 - Home Meds: 18:59 None [Active]; jl7 - PMHx: 18:59 None; jl7 - PSHx: 18:59 None; jl7 - Immunization history:: Client reports having NOT received the Covid vaccine. Flu vaccine is not up to date. - Family history:: not pertinent. - Social history:: Smoking status: Patient reports the use of cigarette tobacco products, smokes two packs cigarettes per day. - Hospitalizations: : No recent hospitalization is reported. Screenin:39 [facility] ED Fall Risk Assessment (Adult) Score/Fall Risk Level 0 - 2 = Low Risk. Abuse as6 screen: Denies threats or abuse. Denies injuries from another. Nutritional screening: No deficits noted. Tuberculosis screening: No symptoms or risk factors identified. Assessment: 19:00 General: Appears distressed, Behavior is calm, cooperative. Pain: Complains of pain in as6 right foot and left foot. Neuro: Level of Consciousness is lethargic. Respiratory: Respiratory effort is labored, gasping. Derm: Skin is dusky. 22:32 General: Appears in no apparent distress. comfortable, Behavior is calm, cooperative. as6 Pain: Denies pain. Respiratory: Respiratory effort is even, unlabored, Respiratory pattern is regular, symmetrical. Derm: Skin is pink, warm \T\ dry. 22:38 Respiratory: Patient placed on BiPAP: Inspiratory Pressure: 14 Expiratory (EPAP) as6 Pressure: 7 FiO2%: 55 Respiratory Rate: 14. 03/10 15:17 Reassessment: Patient appears in no apparent distress at this time. No changes from ld1 previously documented assessment. Patient and/or family updated on plan of care and expected duration. Pain level reassessed. Vital Signs: 03/09 18:57 BP 152 / 69; Pulse 97; Resp 20; Temp 99.0(O); Pulse Ox 54% on R/A; Height 5 ft. 4 in. jl7 (162.56 cm); 18:58 BP 128 / 76; Pulse 92; as6 19:38 BP 102 / 63; Pulse 97; Resp 23; Pulse Ox 100% on 100% BiPAP; Weight 163.29 kg (R); as6 Height 5 ft. 5 in. (165.10 cm) (R); 20:45 BP 118 / 66; Pulse 90; Resp 20 S; Pulse Ox 99% on 55% BiPAP; as6 21:45 BP 121 / 69; Pulse 87; Resp 19 S; Pulse Ox 99% on 55% BiPAP; as6 22:32 BP 115 / 63; Pulse 84; Resp 22 S; Pulse Ox 96% on 55% BiPAP; as6 19:38 Body Mass Index 59.91 (163.29 kg, 165.10 cm) as6 ED Course: 18:13 Patient arrived in ED. am2 18:13 Clayton Dudley PA is PHCP. cp 18:13 Ottoniel Valentin DO is Attending Physician. cp 18:59 Triage completed. jl7 18:59 Arm band placed on right wrist. jl7 19:03 Attending Physician role handed off by Ottoniel Valentin DO rn 19:03 Samson Stark MD is Attending Physician. rn 19:10 Inserted saline lock: 18 gauge in left antecubital area, using aseptic technique. Blood as6 collected. 19:19 Dwight Brooks, RN is Primary Nurse. as6 19:39 Placed in gown. Bed in low position. Call light in reach. Side rails up X2. Client as6 placed on continuous cardiac and pulse oximetry monitoring. NIBP monitoring applied. 20:01 Notified ED physician of a critical lab result(s). troponin of 267.5 Dr Stark notified. bb 20:04 XRAY Chest (1 view) In Process Unspecified. EDMS 20:25 Lobo Ribeiro is Hospitalizing Provider. rn 23:29 No provider procedures requiring assistance completed. Patient admitted, IV remains in as6 place. Administered Medications: 19:25 Drug: Albuterol - atroVENT (ipratropium) (3:1) (2.5 mg - 0.5 mg) 3 ml Route: Nebulizer; as6 23:30 Follow up: Response: No adverse reaction as6 22:12 Drug: Tamiflu (oseltamivir) 75 mg Route: PO; as6 23:30 Follow up: Response: No adverse reaction as6 22:12 Drug: Aspirin 325 mg Route: PO; as6 23:30 Follow up: Response: No adverse reaction as6 Medication: 19:40 VIS not applicable for this client. as6 Outcome: 20:26 Decision to Hospitalize by Provider. rn 23:29 Admitted to ER Hold. Please see [facility] for further documentation. as6 23:29 Condition: stable 23:29 Instructed on the need for admit. 03/10 15:17 Patient left the ED. ld1 Signatures: Dispatcher [employer] EDMS Sanyd Walter, RN Samson Fisher MD MD rn Page, Corey, PA PA cp Leal, Jahala, RN RN jl7 Flaquita Grace Lauren, RN RN ld1 Dwight Brooks, GLADYS RN as6
--- NOTE | 2022-03-09 20:37 | P.HP ---
Certification for Inpatient Patient admitted to: Inpatient With expected LOS: <2 Midnights Patient will require the following post-hospital care: None Practitioner: I am a practitioner with admitting privileges, knowledge of patient current condition, hospital course, and medical plan of care. Services: Services provided to patient in accordance with Admission requirements found in Title 42 Section 412.3 of the Code of Federal Regulations Patient History Date of Service: 03/09/22 Reason for admission: NSTEMI/Influenza A History of Present Illness: Patient is a 36-year-old male with morbid obesity who presented to the emergency department with complaints of fatigue, cough, shortness of breath. He was noted to be saturating 53% on room air upon arrival and was lethargic. He was initially placed on a nonrebreather, then bipap, and is now saturating 100% on a nonrebreather. Patient states that he has been sleeping the past 24-48 hours, only waking up for short periods of time. He has felt very lethargic and like he cannot properly get his words out. His ABG: pH 7.3, PCO2 63, PO2 180, bicarb 32.4 chest x-ray and CTA chest negative. Labs are significant for troponin of 276.5, BNP 1710, influenza A positive. He denies chest pain. EKG showed normal sinus rhythm. He was given aspirin and Tamiflu emergency department. Patient is admitted for further management. Home medications list reviewed: Yes (NA) Home Medications: NK [No Home Meds] 03/09/22 - Past Medical/Surgical History Diabetic: No Past Medical History: Patient denies medical history Past Surgical History: Patient denies surgical history Psychosocial/ Personal History: Patient lives at home with his sister. - Family History Mother -: Heart disease - Social History Smoking Status: Current every day smoker Alcohol use: No CD- Drugs: No Caffeine use: No Place of Residence: Home Review of Systems General: Weakness, Other (Fatigue, Lethargy) Respiratory: Cough, Shortness of Breath Neurological: Confusion Physical Examination - Vital Signs Temperature: 99 F Blood Pressure: 102/63 Pulse: 97 Respirations: 23 Pulse Ox (%): 100 (bipap) - Physical Exam General: Alert, In no apparent distress, Obese HEENT: Atraumatic, PERRLA, EOMI, Sclerae nonicteric Neck: Supple, 2+ carotid pulse no bruit, No LAD, Without JVD or thyroid abnormality Respiratory: Clear to auscultation bilaterally, Normal air movement Cardiovascular: Regular rate/rhythm, Normal S1 S2 Gastrointestinal: Normal bowel sounds, No tenderness Musculoskeletal: No tenderness Integumentary: No rashes Neurological: Normal speech, Normal strength at 5/5 x4 extr, Normal tone, Normal affect - Studies Laboratory Data (last 24 hrs) 03/09/22 19:24: PT 12.6 H, INR 1.15 03/09/22 19:24: WBC 8.00, Hgb 16.5, Hct 50.6 H, Plt Count 169 03/09/22 19:24: Sodium 133 L, Potassium 5.3 H, BUN 23 H, Creatinine 0.94, Glucose 140 H, Magnesium 2.3, Total Bilirubin 0.4, AST 57 H, ALT 38, Alkaline Phosphatase 51 Assessment and Plan - Problems (Diagnosis) (1) NSTEMI (non-ST elevated myocardial infarction) Current Visit: Yes Status: Acute (2) Acute respiratory failure with hypoxia Current Visit: Yes Status: Acute (3) Influenza A Current Visit: Yes Status: Acute (4) Morbid obesity Current Visit: Yes Status: Chronic - Plan Patient is admitted for further management of NSTEMI and acute hypoxic respiratory failure secondary to influenza A. Troponin is elevated at 276. Patient reports family history of heart disease and smokes 2 ppd. Denies CP. Trend serial cardiac enzymes. Cardiology consult. Monitor on telemetry. NPO at midnight in case for cardiac intervention. Received 324 mg aspirin and therapeutic lovenox in the emergency department. Continue aspirin and atorvastatin daily. Check lipid panel, thyroid panel, and A1c. Titrate O2 and wean as tolerated. Patient likely has underlying BERNARDO and will need CPAP on dispo. Scheduled tamiflu. Breathing treatments PRN. Patient smokes 2 ppd. Tobacco cessation counseling. Nicoderm patch provided. Monitor and replete electrolytes per protocol. Reconcile and continue home medications. Lovenox for VTE prophylaxis. Full code. Discharge Plan: Home Plan to discharge in: 48 Hours - Advance Directives Does patient have a Living Will: No Does patient have a Durable POA for Healthcare: No - Code Status/Comfort Care Code Status Assessed: Yes Code Status: Full Code Physician Review: Patient Assessed, Agree with Above Assessment and Plan Critical Care: No Time Spent Managing Pts Care (In Minutes): 50
--- NOTE | 2022-03-09 21:50 | RAD REPORT ---
EXAM DESCRIPTION: CT - Chest For Pe Angio - 03/09/2022 9:33 pm CLINICAL HISTORY: sob COMPARISON: None. TECHNIQUE: Dynamically enhanced axial 3 mm thick images of the chest were obtained during administra tion of <100> mL Isovue 370 IV contrast. Coronal and oblique reconstruction images were generated and reviewed. Exam utilizes a protocol for optimal evaluation of pulmonary arterial tree. Maximum intensity projections 3D imaging was utilized All CT scans are performed using dose optimization technique as appropriate and may include automated exposure control or mA/KV adjustment according to patient size. FINDINGS: Evaluation of the peripheral pulmonary arteries is somewhat limited secondary to respirato ry motion artifact. A pulmonary embolus is not seen. A thoracic aortic aneurysm is not noted. A pleural effusion is not seen. A pericardial effusion is not seen. A lung consolidation is not present. IMPRESSION: No evidence for a pulmonary embolism.
[2022-03-09] MEDS ORDERED: OSELTAMIVIR 75 MG CAP PO ONE (22:07)
[2022-03-09] MEDS ORDERED: ASPIRIN EC 325 MG TABLET PO ONE (22:08)
[2022-03-10] MEDS ORDERED: ONDANSETRON 4 MG/2 ML VIAL IV PRN (00:28)
[2022-03-10] MEDS ORDERED: ACETAMINOPHEN 500 MG TAB PO PRN (00:28)
[2022-03-10] MEDS ORDERED: ALBUTEROL 2.5 MG/3 ML NEB SOL NEB PRN ×2 (00:28→14:00)
[2022-03-10] MEDS: OSELTAMIVIR 75 MG CAP PO SCH ×3 (00:28→20:48)
[2022-03-10] MEDS: ATORVASTATIN 40 MG TAB PO SCH ×2 (00:28→20:48)
[2022-03-10] MEDS ORDERED: IPRATROPIUM BROM 0.5MG/2.5ML NEB PRN (00:28)
[2022-03-10 00:31] VITALS: BMI 59.9
[2022-03-10] MEDS ORDERED: ATORVASTATIN 20 MG TAB ONE (01:22)
[2022-03-10 01:32] LABS: Troponin High Sensitivity 453.8 pg/mL (<58.9)
[2022-03-10 04:51] LABS: Absolute Lymphocytes (CBC) 0.7 K/uL (0.7-4.9); Hematocrit 49.9 % (39.6-49.0); Lymphocytes % 9.2 % (15.3-44.8); MCV 94.1 fL (80-100)
[2022-03-10 05:37] LABS: Magnesium 2.3 mg/dL (1.6-2.4); Phosphorus 3.4 mg/dL (2.5-4.9); Potassium 4.4 mmol/L (3.5-5.1); Thyroid Stimulating Hormone 0.867 uIU/mL (0.358-3.740)
[2022-03-10 05:46] LABS: Troponin High Sensitivity 385.6 pg/mL (<58.9)
[2022-03-10] MEDS ORDERED: INFLUENZA VACCINE (for 6+ mo) 0.5 ML DOSE IMVAC ONE (08:00)
[2022-03-10] MEDS ORDERED: ASPIRIN EC 81 MG TAB PO ONE (08:48)
[2022-03-10] MEDS: ASPIRIN EC 81 MG TAB PO SCH (09:00)
--- NOTE | 2022-03-10 09:08 | CON ---
Date of Consultation: 03/10/2022 Reason For Consultation: Elevated troponin. History Of Present Illness: A 36-year-old male, morbidly obese, presented with generalized fatigue, cough, and shortness of breath, no chest pain, saturating in the low 50s. Apparently upon arrival to the emergency room, he was placed on BiPAP and his saturation improved. The patient is generally fa tigued with joint aches and nasal congestion and cough, low-grade fever. Tested positive for influen za A. Denies any chest pain. Past Medical History: Morbid obesity. Medications: Reviewed. Allergies: NO KNOWN DRUG ALLERGIES. Family History: No premature coronary artery disease or cancer. Social History: Active smoker up to a pack per day. Does not drink or use any drugs. Review of Systems: All systems reviewed and they were negative except what mentioned in HPI. Physical Examination: Vital Signs: Temperature is 97.8, pulse 78, breathing at 19, blood pressure 144/77, saturating 100% on room air. General: Pleasant young male, morbidly obese, no apparent distress. Head and Neck: Pupils are equal, reactive to light. Intact eye movements. No JVD. No cervical lym phadenopathy. Neck is supple. Thyroid is not enlarged. Lungs: Clear to auscultation bilaterally. No rhonchi, wheezing, or crackles. No accessory muscle u se. Heart: Regular rate and rhythm. No extra sounds. Abdomen: Soft, nontender. Bowel sounds positive. No organomegaly. No masses or hernia. No rigidi ty or rebound. Extremities: No edema, clubbing, or cyanosis. Intact pulses. Skin: No rash. Neurologic: Alert, awake, oriented x3. No acute focal deficits appreciated. Investigations: Troponin peaked at 453 and down to 385, BUN 21, creatinine 0.8, hemoglobin 15.2. Assessment And Recommendations: 1.Elevated troponin. No chest pain. No history of coronary artery disease. This is likely related to influenza A infection. Please obtain echocardiogram and further recommendations to follow daquan davis. Place the patient on baby aspirin. 2.Influenza A. Continue current management. SR/MODL Voice ID: [id number] Report ID: [id number]
[2022-03-10] MEDS: ENOXAPARIN 40 MG/0.4 ML SQ SCH (15:49)
--- NOTE | 2022-03-10 18:21 | P.PN ---
Subjective Date of Service: 03/10/22 Chief Complaint: NSTEMI/Influenza A Patient reports shortness of breath. He was initially on BiPAP and currently weaned down to 8 L oxygen by nasal cannula. No recorded fever. Physical Examination - Vital Signs Temperature: 98.1 F Blood Pressure: 114/75 Pulse: 70 Respirations: 16 Pulse Ox (%): 91 - Studies Laboratory Data (last 24 hrs) 03/09/22 19:24: PT 12.6 H, INR 1.15 03/09/22 19:24: WBC 8.00, Hgb 16.5, Hct 50.6 H, Plt Count 169 03/09/22 19:24: Sodium 133 L, Potassium 5.3 H, BUN 23 H, Creatinine 0.94, Glucose 140 H, Magnesium 2.3, Total Bilirubin 0.4, AST 57 H, ALT 38, Alkaline Phosphatase 51 Assessment And Plan - Current Problems (Diagnosis) (1) Elevated troponin Current Visit: Yes Status: Acute (2) Acute respiratory failure with hypoxia Current Visit: Yes Status: Acute (3) Influenza A Current Visit: Yes Status: Acute (4) Morbid obesity Current Visit: Yes Status: Chronic - Plan Physical Exam General: Alert, In no apparent distress, morbidly obese Neck: Supple, short neck. Respiratory: Bilateral diminished breath sounds. Cardiovascular: Regular rate/rhythm, Normal S1 S2 Gastrointestinal: Normal bowel sounds, No tenderness Musculoskeletal: No tenderness Integumentary: No rashes Neurological: No focal motor deficit. Plan: Elevated troponin likely secondary to influenza infection. Cardiology input appreciated. Obtain echocardiogram. Supplemental oxygen. Discontinue full anticoagulation. Continue Tamiflu. Bronchodilators. Activity as tolerated. Diet as tolerated.
[2022-03-10] MEDS: MELATONIN 5 MG TABLET PO PRN (20:48)
[2022-03-11 03:56] LABS: Absolute Lymphocytes (CBC) 0.4 K/uL (0.7-4.9); Hematocrit 48.5 % (39.6-49.0); Lymphocytes % 7.3 % (15.3-44.8); MCV 94.4 fL (80-100); MPV 8.1 fL (7.6-11.3); RBC Red Blood Cell Count 5.14 M/uL (4.33-5.43)
[2022-03-11 04:06] LABS: Potassium 4.4 mmol/L (3.5-5.1)
[2022-03-11] MEDS: OSELTAMIVIR 75 MG CAP PO SCH ×2 (09:24→20:22)
[2022-03-11] MEDS: ASPIRIN EC 81 MG TAB PO SCH (09:24)
--- NOTE | 2022-03-11 14:37 | ECHO ---
HEIGHT: 5 ft 5 in WEIGHT: 360 lb 0 oz DATE OF STUDY: 03/10/[address]: Rona Riddle 2-DIMENSIONAL: YES M.MODE: YES DOPPLER: YES COLOR FLOW: YES TDS: YES PORTABLE: YES DEFINITY: NO BUBBLE STUDY: NO DIAGNOSIS: NSTEMI CARDIAC HISTORY: CATHERIZATION: SURGERY: PROSTHETIC VALVE: PACEMAKER: MEASUREMENTS (cm) DIASTOLIC (NORMALS) SYSTOLIC (NORMALS) IVSd 1.3 (0.6-1.2) LA Diam 3.6 (1.9-4.0) LVEF 77% LVIDd 3.7 (3.5-5.7) LVIDs 2.0 (2.0-3.5) %FS 45% LVPWd 1.4 (0.6-1.2) Ao Diam 2.9 (2.0-3.7) 2 DIMENSIONAL ASSESSMENT: RIGHT ATRIUM: NORMAL LEFT ATRIUM: NORMAL RIGHT VENTRICLE: NORMAL LEFT VENTRICLE: NORMAL TRICUSPID VALVE: MILD TR MITRAL VALVE: MILD MR PULMONIC VALVE: NORMAL AORTIC VALVE: NORMAL PERICARDIAL EFFUSION: NONE AORTIC ROOT: NORMAL LEFT VENTRICULAR WALL MOTION: NORMAL DOPPLER/COLOR FLOW: SEE BELOW. COMMENTS: 1. NORMAL LEFT VENTRICULAR EJECTION FRACTION 60-65%. 2. NORMAL WALL MOTION. 3. NORMAL DIASTOLIC FUNCTION. 4. MILD MITRAL AND TRICUSPID REGURGITATION. 5. POOR WINDOWS. TECHNOLOGIST: Nelly DORMAN
--- NOTE | 2022-03-11 16:47 | P.PN ---
Subjective Date of Service: 03/11/22 Chief Complaint: NSTEMI/Influenza A Patient reports shortness of breath. He appeared to be BiPAP dependent for now. No recorded fever. Physical Examination - Vital Signs Temperature: 96.4 F Blood Pressure: 111/53 Pulse: 67 Respirations: 18 Pulse Ox (%): 99 Assessment And Plan - Current Problems (Diagnosis) (1) Elevated troponin Current Visit: Yes Status: Acute (2) Influenza A Current Visit: Yes Status: Acute (3) Morbid obesity Current Visit: Yes Status: Chronic (4) Obesity hypoventilation syndrome Current Visit: Yes Status: Acute (5) Acute respiratory failure with hypoxia and hypercapnia Current Visit: Yes Status: Acute - Plan Physical Exam General: Alert, In no apparent distress, morbidly obese. On BiPAP. Neck: Supple, short neck. Respiratory: Bilateral diminished breath sounds. Cardiovascular: Regular rate/rhythm, Normal S1 S2 Gastrointestinal: Normal bowel sounds, No tenderness Musculoskeletal: No tenderness Integumentary: No rashes Neurological: No focal motor deficit. Plan: Elevated troponin likely secondary to influenza infection. Seen by cardiology. Echocardiogram is unremarkable. CTA thorax shows clear lungs. No infiltrate. No PE. Acute respiratory failure likely secondary to obesity hypoventilation BiPAP as needed. Continue Tamiflu. Bronchodilators. Trial of IV steroid for possible bronchitis. Increased activity as tolerated.
[2022-03-11] MEDS: ENOXAPARIN 40 MG/0.4 ML SQ SCH (17:17)
[2022-03-11] MEDS: ATORVASTATIN 40 MG TAB PO SCH (20:22)
[2022-03-12 03:41] LABS: Absolute Lymphocytes (CBC) 0.9 K/uL (0.7-4.9); Hematocrit 46.4 % (39.6-49.0); MCV 95.4 fL (80-100); MPV 8.1 fL (7.6-11.3); RBC Red Blood Cell Count 4.87 M/uL (4.33-5.43)
[2022-03-12 04:11] LABS: Potassium 4.2 mmol/L (3.5-5.1)
[2022-03-12 05:52] LABS: Arterial Blood Carboxyhemoglob 0.8 % (0-1.5); Blood Gas Oxyhemoglobin 93.5 % (94-97); Blood O2 Saturation 95.7 % (92-98.5)
[2022-03-12] MEDS: ASPIRIN EC 81 MG TAB PO SCH (08:26)
[2022-03-12] MEDS: OSELTAMIVIR 75 MG CAP PO SCH ×2 (08:26→20:29)
--- NOTE | 2022-03-12 13:24 | EKG ---
Test Date: 2022-03-09 Test Time: 19:35:40 Stock Parts Inspector: MEASUREMENT RESULTS: Intervals: Rate: 91 SC: 134 QRSD: 88 QT: 348 QTc: 428 [place]: P: 47 SC: 134 QRS: 78 T: 52 INTERPRETIVE STATEMENTS: Normal sinus rhythm Normal ECG No previous ECG available for comparison Electronically Signed On 03-12-22 13:18:49 STRIP CUTTER by Gera Sierra
[2022-03-12] MEDS: ENOXAPARIN 40 MG/0.4 ML SQ SCH (16:43)
--- NOTE | 2022-03-12 17:50 | P.PN ---
Subjective Date of Service: 03/12/22 Chief Complaint: NSTEMI/Influenza A Patient states he feels better than yesterday. He was weaned off BiPAP to 10 L oxygen by nasal cannula. No fever. Physical Examination - Vital Signs Temperature: 97.1 F Blood Pressure: 144/71 Pulse: 72 Respirations: 18 Pulse Ox (%): 91 Assessment And Plan - Current Problems (Diagnosis) (1) Elevated troponin Current Visit: Yes Status: Acute (2) Influenza A Current Visit: Yes Status: Acute (3) Morbid obesity Current Visit: Yes Status: Chronic (4) Obesity hypoventilation syndrome Current Visit: Yes Status: Acute (5) Acute respiratory failure with hypoxia and hypercapnia Current Visit: Yes Status: Acute - Plan Physical Exam General: Alert, In no apparent distress, morbidly obese. On BiPAP. Neck: Supple, short neck. Respiratory: Bilateral diminished breath sounds. Cardiovascular: Regular rate/rhythm, Normal S1 S2 Gastrointestinal: Normal bowel sounds, No tenderness Musculoskeletal: No tenderness Integumentary: No rashes Neurological: No focal motor deficit. Plan: Elevated troponin likely secondary to influenza infection. Seen by cardiology. Echocardiogram is unremarkable. CTA thorax shows clear lungs. No infiltrate. No PE. Acute respiratory failure likely secondary to obesity hypoventilation Patient weaned off BiPAP to oxygen by nasal cannula today. Worsening hypercapnia. Titrate O2 to oxygen saturation of 88 to 92% to preserve hypoxic drive. Pulmonary consulted. Continue Tamiflu. Bronchodilators. Continue IV steroid for possible bronchitis. Increased activity as tolerated.
[2022-03-12] MEDS: ATORVASTATIN 40 MG TAB PO SCH (20:29)
[2022-03-12] MEDS: MELATONIN 5 MG TABLET PO PRN (20:32)
[2022-03-13 04:07] LABS: Lymphocytes % 23.6 % (15.3-44.8); MCV 93.6 fL (80-100); MPV 7.8 fL (7.6-11.3); RBC Red Blood Cell Count 5.02 M/uL (4.33-5.43)
[2022-03-13 04:35] LABS: Potassium 3.7 mmol/L (3.5-5.1)
[2022-03-13] MEDS: ASPIRIN EC 81 MG TAB PO SCH (08:13)
[2022-03-13] MEDS: OSELTAMIVIR 75 MG CAP PO SCH ×2 (08:13→20:03)
[2022-03-13] MEDS ORDERED: POTASSIUM CL SA 10 MEQ TAB PO ONE (09:00)
--- NOTE | 2022-03-13 11:31 | P.CNS ---
Date of Consult: 03/13/22 Reason for Consult: Shortness of breath respiratory failure Chief Complaint: NSTEMI/Influenza A History of Present Illness: Patient is 36 years of age morbidly obese admitted with fatigue cough shortness of breath he was very hypoxic placed on BiPAP no prior history of obstructive sleep apnea he was hypercapnic troponins elevated leuk positive short of breath for quite some time Allergies No Known Allergies Allergy (Unverified 03/10/22 00:28) Home Medications: NK [No Home Meds] 03/09/22 - Past Medical/Surgical History Diabetic: No Psychosocial/ Personal History: Patient lives at home with his sister. - Family History Mother Medical History: Heart disease - Social History Smoking Status: Current every day smoker Alcohol use: No CD- Drugs: No Caffeine use: No Place of Residence: Home Review of Systems General: Weakness Respiratory: Shortness of Breath Physical Examination Temp Pulse Resp BP Pulse Ox 96.8 F 73 18 124/57 L 94 03/13/22 08:00 03/13/22 08:00 03/13/22 08:00 03/13/22 08:00 03/13/22 08:00 General: Alert, Oriented x3 Respiratory: Clear to auscultation bilaterally, Diminished Cardiovascular: No edema, Regular rate/rhythm, Normal S1 S2 - Problems (1) Chronic respiratory failure with hypoxia and hypercapnia Current Visit: Yes Status: Acute Plan: Patient is 36 years of age admitted with hypoxemia he has chronic hypoxic hypercapnic respiratory failure secondary to morbid obesity chronic CO2 retention troponins are probably elevated from hypoxemia there is no evidence of's of pulmonary embolism on CT pulmonary angiogram from a noninvasive ventilator or BiPAP we will also added some Diamox prognosis poor patient is not under care of a physician is not taking any medications
[2022-03-13] MEDS: acetaZOLAMIDE 250 MG TAB PO SCH (12:07)
--- NOTE | 2022-03-13 13:53 | P.PN ---
Subjective Date of Service: 03/13/22 Chief Complaint: NSTEMI/Influenza A Patient states he feels better. He has been able to transfer to the bedside commode. Been tolerating oxygen by nasal cannula. Serum bicarb level continue to increase. Physical Examination - Vital Signs Temperature: 97.2 F Blood Pressure: 130/59 Pulse: 71 Respirations: 18 Pulse Ox (%): 95 Assessment And Plan - Current Problems (Diagnosis) (1) Elevated troponin Current Visit: Yes Status: Acute (2) Influenza A Current Visit: Yes Status: Acute (3) Morbid obesity Current Visit: Yes Status: Chronic (4) Obesity hypoventilation syndrome Current Visit: Yes Status: Acute (5) Acute respiratory failure with hypoxia and hypercapnia Current Visit: Yes Status: Acute - Plan Physical Exam General: Alert, In no apparent distress, morbidly obese. On BiPAP. Neck: Supple, short neck. Respiratory: Bilateral diminished breath sounds. Cardiovascular: Regular rate/rhythm, Normal S1 S2 Gastrointestinal: Normal bowel sounds, No tenderness Musculoskeletal: No tenderness Integumentary: No rashes Neurological: No focal motor deficit. Plan: Elevated troponin likely secondary to influenza infection. Seen by cardiology. Echocardiogram is unremarkable. CTA thorax shows clear lungs. No infiltrate. No PE. Acute respiratory failure likely secondary to obesity hypoventilation Patient weaned off BiPAP to oxygen by nasal cannula today. Serum bicarb trending up. This is likely respiratory acidosis compensation. Pulmonary input appreciated. Patient started on Diamox. Titrate O2 to oxygen saturation of 88 to 92% to preserve hypoxic drive. Pulmonary consulted. Continue Tamiflu. Bronchodilators. Continue IV steroid for possible bronchitis. Increased activity as tolerated. Patient may need evaluation for outpatient NIV. He is uninsured.
[2022-03-13] MEDS: ENOXAPARIN 40 MG/0.4 ML SQ SCH (16:01)
[2022-03-13] MEDS: ATORVASTATIN 40 MG TAB PO SCH (20:03)
[2022-03-13] MEDS: MELATONIN 5 MG TABLET PO PRN (20:04)
[2022-03-14 04:22] LABS: Absolute Lymphocytes (CBC) 1.1 K/uL (0.7-4.9); Hematocrit 49.4 % (39.6-49.0); Lymphocytes % 25.3 % (15.3-44.8); MCV 94.3 fL (80-100); MPV 7.8 fL (7.6-11.3); RBC Red Blood Cell Count 5.24 M/uL (4.33-5.43)
[2022-03-14 04:36] LABS: Potassium 3.8 mmol/L (3.5-5.1)
[2022-03-14] MEDS ORDERED: POTASSIUM 25 MEQ EFFERV TAB PO ONE (08:00)
[2022-03-14] MEDS: ASPIRIN EC 81 MG TAB PO SCH (08:20)
[2022-03-14] MEDS: OSELTAMIVIR 75 MG CAP PO SCH ×2 (08:20→22:20)
[2022-03-14] MEDS: acetaZOLAMIDE 250 MG TAB PO SCH (08:20)
--- NOTE | 2022-03-14 11:26 | P.PN ---
Subjective Date of Service: 03/14/22 Chief Complaint: Obesity hypoventilation syndrome/sleep apnea Subjective: Improving (Patient is improving doing better currently on nasal cannula oxygen) Review of Systems General: Weakness Respiratory: Shortness of Breath Physical Examination - Vital Signs Temperature: 97.5 F Blood Pressure: 103/66 Pulse: 73 Respirations: 18 Pulse Ox (%): 96 - Physical Exam General: Alert, Oriented x3 Respiratory: Clear to auscultation bilaterally, Diminished Cardiovascular: No edema, Regular rate/rhythm Assessment And Plan - Current Problems (Diagnosis) (1) Chronic respiratory failure with hypoxia and hypercapnia Current Visit: Yes Status: Acute Plan: Patient has chronic hypoventilation syndrome currently on Diamox oxygen has been titrated down will need home O2 also plan to arrange to give him a CPAP machine from my office does not have any insurance titrate sat down to 90% continue with Diamox may have underlying obstructive asthma exchange operator to an inhaler Physician Review: Patient Assessed, Agree with Above Assessment and Plan
--- NOTE | 2022-03-14 12:31 | P.PN ---
Subjective Date of Service: 03/14/22 Chief Complaint: Obesity hypoventilation syndrome/sleep apnea Patient states he continues to feel better. States he has been ambulating in the room, able to shower yesterday. He has been been tolerating oxygen by nasal cannula. Physical Examination - Vital Signs Temperature: 97.9 F Blood Pressure: 106/64 Pulse: 74 Respirations: 18 Pulse Ox (%): 97 Assessment And Plan - Current Problems (Diagnosis) (1) Elevated troponin Current Visit: Yes Status: Acute (2) Influenza A Current Visit: Yes Status: Acute (3) Morbid obesity Current Visit: Yes Status: Chronic (4) Obesity hypoventilation syndrome Current Visit: Yes Status: Acute (5) Acute respiratory failure with hypoxia and hypercapnia Current Visit: Yes Status: Acute - Plan Physical Exam General: Alert, In no apparent distress, morbidly obese. On BiPAP. Neck: Supple, short neck. Respiratory: Bilateral diminished breath sounds. Cardiovascular: Regular rate/rhythm, Normal S1 S2 Gastrointestinal: Normal bowel sounds, No tenderness Musculoskeletal: No tenderness Integumentary: No rashes Neurological: No focal motor deficit. Plan: Elevated troponin likely secondary to influenza infection. Seen by cardiology. Echocardiogram is unremarkable. CTA thorax shows clear lungs. No infiltrate. No PE. Acute respiratory failure likely secondary to obesity hypoventilation Patient weaned off BiPAP to oxygen by nasal cannula which he is tolerating. He is clinically improved. Serum bicarb improved with Diamox. Pulmonary is following. He is off steroids. Titrate O2 to oxygen saturation of 88 to 92% to preserve hypoxic drive. Continue Tamiflu. Bronchodilators. Continue IV steroid for possible bronchitis. Increased activity as tolerated. Physician Review: Patient Assessed, Agree with Above Assessment and Plan
[2022-03-14] MEDS: DULERA 200/5 (MOMETASONE/FORMOTEROL) INHALER IH SCH ×2 (13:05→22:21)
[2022-03-14 14:54] LABS: Arterial Blood Carboxyhemoglob 1.1 % (0-1.5); Blood Gas Oxyhemoglobin 86.6 % (94-97); Blood O2 Saturation 88.9 % (92-98.5)
[2022-03-14] MEDS: ENOXAPARIN 40 MG/0.4 ML SQ SCH (16:14)
[2022-03-14] MEDS: MELATONIN 5 MG TABLET PO PRN (22:20)
[2022-03-14] MEDS: ATORVASTATIN 40 MG TAB PO SCH (22:20)
[2022-03-15 04:21] LABS: Potassium 3.7 mmol/L (3.5-5.1)
[2022-03-15] MEDS: ASPIRIN EC 81 MG TAB PO SCH (08:39)
[2022-03-15] MEDS: acetaZOLAMIDE 250 MG TAB PO SCH (08:39)
[2022-03-15] MEDS: DULERA 200/5 (MOMETASONE/FORMOTEROL) INHALER IH SCH ×2 (08:40→20:48)
[2022-03-15] MEDS ORDERED: POTASSIUM 25 MEQ EFFERV TAB PO ONE (09:00)
--- NOTE | 2022-03-15 15:43 | P.PN ---
Subjective Date of Service: 03/15/22 Chief Complaint: Obesity hypoventilation syndrome/sleep apnea Patient denies any shortness of breath at rest. He states he feels better but he still requiring 6 L of oxygen by nasal cannula. He is ambulatory. Physical Examination - Vital Signs Temperature: 97.0 F Blood Pressure: 132/67 Pulse: 76 Respirations: 18 Pulse Ox (%): 90 - Studies Microbiology Data (last 24 hrs): 03/09/22 19:52 Blood - Blood Aerobic Blood Culture - Final No growth in 5 days. 03/09/22 19:52 Blood - Blood Anaerobic Blood Culture - Final No growth in 5 days. 03/09/22 20:02 Blood - Blood Aerobic Blood Culture - Final No growth in 5 days. 03/09/22 20:02 Blood - Blood Anaerobic Blood Culture - Final No growth in 5 days. Assessment And Plan - Current Problems (Diagnosis) (1) Elevated troponin Current Visit: Yes Status: Acute (2) Influenza A Current Visit: Yes Status: Acute (3) Morbid obesity Current Visit: Yes Status: Chronic (4) Obesity hypoventilation syndrome Current Visit: Yes Status: Acute (5) Acute respiratory failure with hypoxia and hypercapnia Current Visit: Yes Status: Acute - Plan Physical Exam General: Alert, In no apparent distress, morbidly obese. On BiPAP. Neck: Supple, short neck. Respiratory: Bilateral diminished breath sounds. Cardiovascular: Regular rate/rhythm, Normal S1 S2 Gastrointestinal: Normal bowel sounds, No tenderness Musculoskeletal: No tenderness Integumentary: No rashes Neurological: No focal motor deficit. Plan: Elevated troponin likely secondary to influenza infection. Seen by cardiology. Echocardiogram is unremarkable. CTA thorax shows clear lungs. No infiltrate. No PE. Acute respiratory failure likely secondary to obesity hypoventilation Patient weaned off BiPAP to oxygen by nasal cannula. Continue to wean oxygen. Patient is uninsured and states he cannot afford home oxygen. He has clinically improved. Serum bicarb improved with Diamox. Metabolic alkalosis resolved. Repeat ABG to reevaluate CO2 retention. Pulmonary is following. He is off steroids. Patient completed Tamiflu Continue bronchodilators. Activity as tolerated.
[2022-03-15] MEDS: ENOXAPARIN 40 MG/0.4 ML SQ SCH (17:37)
[2022-03-15 18:18] LABS: Arterial Blood Carboxyhemoglob 0.9 % (0-1.5); Blood Gas Oxyhemoglobin 79.4 % (94-97); Blood O2 Saturation 81.4 % (92-98.5)
[2022-03-15] MEDS ORDERED: MELATONIN 5 MG TABLET PO PRN (20:16)
[2022-03-15] MEDS: MELATONIN 5 MG TABLET PO PRN (20:47)
[2022-03-15] MEDS: ATORVASTATIN 40 MG TAB PO SCH (20:48)
--- NOTE | 2022-03-15 21:06 | P.PN ---
Date of Service: 03/16/22 Subjective: feeling better closer to baseline down to 3L NC no new/worsening symtoms ROS: A complete review of systems was performed and is negative except as mentioned above Physical Exam: Gen: NAD, AOx3 HEENT: normal conjunctiva, sclera anicteric CV: regular rate & rhythm, no edema Pulm: b/l diminished breath sounds; on 3L NC Abd: soft, non-tender, non-distended Neuro: normal speech, normal affect vitals reviewed Problem List acute hypoxemic and hypercapnic respiratory failure secondary to obesity hypoventilation, possible underlying COPD influenza infection obesity hypoventilation syndrome morbid obesity elevated troponin Elevated troponin likely secondary to influenza infection. Seen by cardiology. Echocardiogram is unremarkable. CTA thorax shows clear lungs. No infiltrate. No PE. Acute respiratory failure likely secondary to obesity hypoventilation Patient weaned off BiPAP to oxygen by nasal cannula. Continue to wean oxygen. Patient is uninsured and states he cannot afford home oxygen. He has clinically improved. Serum bicarb improved with Diamox. Metabolic alkalosis resolved. Pulmonary is following. He is off steroids. added inhaler Patient completed Tamiflu Continue bronchodilators. Activity as tolerated. VTE: lovenox Code: full Dispo: home, ~1-2 days wean O2; pt uninsured
[2022-03-16 03:30] LABS: Potassium 4.2 mmol/L (3.5-5.1)
[2022-03-16] MEDS: ASPIRIN EC 81 MG TAB PO SCH (08:38)
[2022-03-16] MEDS: acetaZOLAMIDE 250 MG TAB PO SCH (08:38)
[2022-03-16] MEDS: DULERA 200/5 (MOMETASONE/FORMOTEROL) INHALER IH SCH ×2 (08:38→21:00)
[2022-03-16] MEDS: ENOXAPARIN 40 MG/0.4 ML SQ SCH (15:57)
[2022-03-16] MEDS: MELATONIN 5 MG TABLET PO PRN (21:49)
[2022-03-16] MEDS: ATORVASTATIN 40 MG TAB PO SCH (21:49)
[2022-03-17 05:00] VITALS: BP 144/73; TEMP 97.1
[2022-03-17] MEDS: ASPIRIN EC 81 MG TAB PO SCH (08:29)
[2022-03-17] MEDS: acetaZOLAMIDE 250 MG TAB PO SCH (08:29)
[2022-03-17] MEDS: DULERA 200/5 (MOMETASONE/FORMOTEROL) INHALER IH SCH (08:29)
[2022-03-17 10:19] VITALS: O2SAT 89
--- NOTE | 2022-03-17 14:23 | P.DS ---
Admission Date: 03/09/22 Discharge Date: 03/17/22 Disposition: ROUTINE DISCHARGE Reason for Admission: Obesity hypoventilation syndrome/sleep apnea Consultations: Erasto - Марина Bernabe - Mariela Brief History of Present Illness: 36-year-old male with morbid obesity who presented to the emergency department with complaints of fatigue, cough, shortness of breath. He was noted to be saturating 53% on room air upon arrival and was lethargic. He was initially placed on a nonrebreather, then bipap, and is now saturating 100% on a nonrebreather. Patient states that he has been sleeping the past 24-48 hours, only waking up for short periods of time. He has felt very lethargic and like he cannot properly get his words out. His ABG: pH 7.3, PCO2 63, PO2 180, bicarb 32.4 chest x-ray and CTA chest negative. Labs are significant for troponin of 276.5, BNP 1710, influenza A positive. He denies chest pain. EKG showed normal sinus rhythm. He was given aspirin and Tamiflu emergency department. Patient is admitted for further management. Hospital Course: Problem List acute hypoxemic and hypercapnic respiratory failure secondary to obesity hypoventilation, possible underlying COPD influenza infection obesity hypoventilation syndrome morbid obesity elevated troponin secondary to demand ischemia Patient presented with shortness of breath. Found to be influenza positive and hypoxic with hypercapnia. This was felt to be multifactorial - from influenza infection and from obesity hypoventilation syndrome / undiagnosed/untreated obstructive sleep apnea. Possibly component of asthma. He had improvement of his hypoxia and hypercapnia with time. He received tamiflu, oxygen supplementation, dulera inhaler, and diamox. Pulmonology was consulted. Recommended CPAP and home O2. Patient stated he was uninsured and could not afford either of these at this time, and did not have any friends/family that could assist with the cost right now. He will start saving up to purchase a CPAP machine in the near future. Within the last 24hrs prior to discharge, patient was feeling back to his normal breathing, with oxygen saturations mostly 88-91% on room air, and didn't change more than 1% if placed on higher levels of oxygen supplementation. He ambulated within the room and maintained >90% SpO2 on room air. Given this stability and him feeling back to his usual, he requested discharge home, as he would not be able to afford CPAP/home O2 and felt no other need to continue in the hospital if that wasn't going to change. Since he was stable /borderline on room air and cost issues, I felt it was reasonable for the patient to be discharged home. Discussed this is still suboptimal care and ideally he would have a CPAP to help. Patient expressed understanding, and requested discharge home. Reiterated importance of smoking cessation. Discharged with dulera inhaler and diamox. He is to follow up with Dr. Parish in ~1-2 weeks. Vital Signs/Physical Exam: Temp Pulse Resp BP Pulse Ox 97.1 F 80 18 144/73 H 93 03/17/22 04:00 03/17/22 04:00 03/17/22 04:00 03/17/22 04:00 03/17/22 04:00 Physical Exam: Gen: NAD, AOx3 HEENT: normal conjunctiva, sclera anicteric CV: regular rate & rhythm, no edema Pulm: b/l diminished breath sounds; on room air, nonlabored respirations Abd: soft, non-tender, non-distended Neuro: normal speech, normal affect Laboratory Data at Discharge: WBC 4.50 K/uL (4.3-10.9) 03/14/22 03:08 Hgb 15.8 g/dL (13.6-17.9) 03/14/22 03:08 Hct 49.4 % (39.6-49.0) H 03/14/22 03:08 Plt Count 165 K/uL (152-406) 03/14/22 03:08 PT 12.6 SECONDS (9.5-12.5) H 03/09/22 19:24 INR 1.15 03/09/22 19:24 Sodium 140 mmol/L (136-145) 03/17/22 03:21 Potassium 4.0 mmol/L (3.5-5.1) 03/17/22 03:21 BUN 17 mg/dL (7-18) 03/17/22 03:21 Creatinine 0.77 mg/dL (0.70-1.30) 03/17/22 03:21 Glucose 101 mg/dL (74-106) 03/17/22 03:21 Phosphorus 3.4 mg/dL (2.5-4.9) 03/10/22 04:18 Magnesium 2.3 mg/dL (1.6-2.4) 03/10/22 04:18 Total Bilirubin 0.4 mg/dL (0.2-1.0) 03/09/22 19:24 AST 57 U/L (15-37) H 03/09/22 19:24 ALT 38 U/L (16-61) 03/09/22 19:24 Alkaline Phosphatase 51 U/L (45-117) 03/09/22 19:24 Triglycerides 117 mg/dL (<150) 03/10/22 04:18 Cholesterol 124 mg/dL (<200) 03/10/22 04:18 HDL Cholesterol 30 mg/dL (40-60) L 03/10/22 04:18 Cholesterol/HDL Ratio 4.13 03/10/22 04:18 Home Medications: acetaZOLAMIDE [Diamox] 250 mg PO DAILY 30 Days #30 tab 03/17/22 New Medications: acetaZOLAMIDE [Diamox] 250 mg PO DAILY 30 Days #30 tab Physician Discharge Instructions: Patient presented with shortness of breath. Found to be influenza positive and hypoxic with hypercapnia. This was felt to be multifactorial - from influenza infection and from obesity hypoventilation syndrome / undiagnosed/untreated obstructive sleep apnea. Possibly component of asthma. He had improvement of his hypoxia and hypercapnia with time. He received tamiflu, oxygen supplementation, dulera inhaler, and diamox. Pulmonology was consulted. Recommended CPAP and home O2. Patient stated he was uninsured and could not afford either of these at this time, and did not have any friends/family that could assist with the cost right now. He will start saving up to purchase a CPAP machine in the near future. Within the last 24hrs prior to discharge, patient was feeling back to his normal breathing, with oxygen saturations mostly 88-91% on room air, and didn't change more than 1% if placed on higher levels of oxygen supplementation. He ambulated within the room and maintained >90% SpO2 on room air. Given this stability and him feeling back to his usual, he requested discharge home, as he would not be able to afford CPAP/home O2 and felt no other need to continue in the hospital if that wasn't going to change. Since he was stable /borderline on room air and cost issues, I felt it was reasonable for the patient to be discharged home. Discussed this is still suboptimal care and ideally he would have a CPAP to help. Patient expressed understanding, and requested discharge home. Reiterated importance of smoking cessation. Discharged with dulera inhaler and diamox. He is to follow up with Dr. Parish in ~1-2 weeks. Followup: NONE,NONE [Primary Care Provider] - Time spent managing pt's care (in minutes): 45
== END 2022-03-17 10:45 | disposition home or self-care (01) | DRG 193 ==
LOC: ER 18:09 → ERHOLD 20:28 → 4TH 03-10 14:45
PROVIDERS: ADMIT Internal Medicine; ATTEND Hospitalist
PROC: 5A09557 Assistance with Respiratory Ventilation, Greater than 96 Consecutive Hours, Continuous Positive Airway Pressure (ICD-10-PCS; principal; 2022-03-09)
DX: J10.1 Influenza due to other identified influenza virus with other respiratory manifestations (principal); J96.01 Acute respiratory failure with hypoxia; J96.02 Acute respiratory failure with hypercapnia; Z68.43 Body mass index [BMI] 50.0-59.9, adult; E66.2 Morbid (severe) obesity with alveolar hypoventilation; E87.3 Alkalosis; I24.8 Other forms of acute ischemic heart disease; J44.9 Chronic obstructive pulmonary disease, unspecified; F17.210 Nicotine dependence, cigarettes, uncomplicated; Z28.310 Unvaccinated for COVID-19; Z20.822 Contact with and (suspected) exposure to COVID-19
CPT/HCPCS: 0240U; 36415; 71045; 71275; 80048; 80061; 80076; 82550; 82805; 83036; 83605; 83735; 83880; 84100; 84443; 84484; 85025; 85379; 85610; 87040; 93005; 93306; 94010; 94640; 94660; 94760; 99291; 99292; J1650; J3535; J7613; J7644; Q9967